=== PATIENT | female | born 1930 | race Caucasian/White ===

== ENCOUNTER 2019-03-03 13:02 | Outpatient (CLI) | payer MEDICARE, BC | END 2019-03-03 23:59 | disposition home or self-care (01) | LOC: CARD DIAG 13:02 | DX: I65.23 Occlusion and stenosis of bilateral carotid arteries (principal); I34.0 Nonrheumatic mitral (valve) insufficiency; I63.9 Cerebral infarction, unspecified; J45.909 Unspecified asthma, uncomplicated | CPT/HCPCS: 93306; 93880 ==